=== PATIENT | female | born 1970 ===

== ENCOUNTER → 2021-01-05 | Outpatient (CLI) | payer OTHER ==
[2021-01-07 16:42] LABS: CORONAVIRUS (COVID19) CSH-NRL Negative (Negative)
== END | disposition home or self-care (01) ==
LOC: LAB SHORT 15:45 → LAB 15:45
PROVIDERS: Chiropractor
DX: Z20.822 Contact with and (suspected) exposure to COVID-19 (principal)
CPT/HCPCS: U0003

== ENCOUNTER → 2021-07-16 | Outpatient (CLI) | payer OTHER ==
[2021-07-18 02:11] LABS: CHLAMYDIA TRACHOMATIS, NAA Negative (Negative); HPV 16 Negative (Negative); HPV 18 Negative (Negative); HPV OTHER HR TYPES Positive (Negative)
== END | disposition home or self-care (01) ==
LOC: LAB SHORT 17:58
PROVIDERS: Family Medicine
DX: N95.1 Menopausal and female climacteric states (principal)
CPT/HCPCS: 87491; 87591; 87624; G0123

== ENCOUNTER → 2022-05-13 | Outpatient (CLI) | payer OTHER ==
[2022-05-19 15:11] LABS: HPV 16 Negative (Negative); HPV 18 Negative (Negative); HPV OTHER HR TYPES Positive (Negative)
== END ==
LOC: LAB SHORT 13:04 → LAB 13:04
PROVIDERS: Family Medicine
DX: N95.1 Menopausal and female climacteric states (principal)
CPT/HCPCS: 87624; G0123

== ENCOUNTER → 2022-12-24 | Outpatient (CLI) | payer OTHER ==
[2022-12-29 15:07] LABS: HPV 16 Negative (Negative); HPV 18 Negative (Negative); HPV OTHER HR TYPES Positive (Negative)
== END | disposition home or self-care (01) ==
LOC: LAB SHORT 15:20
PROVIDERS: Family Medicine
DX: R87.811 Vaginal high risk human papillomavirus (HPV) DNA test positive (principal)
CPT/HCPCS: 87624; G0145

== ENCOUNTER → 2023-03-03 | Outpatient (CLI) | payer OTHER | END | disposition home or self-care (01) | LOC: LAB 11:12 → LAB SHORT 11:12 → PLD 11:12 | DX: N87.0 Mild cervical dysplasia (principal) | CPT/HCPCS: 88305 ==

== ENCOUNTER 2023-06-14 08:05 | Day surgery (SDC) | payer OTHER ==
[~2023-06-14] VITALS: Ht 167.6 cm; Wt 65.1 kg
[2023-06-14] MEDS ORDERED: BUPR75 (08:47)
[2023-06-14 11:47] VITALS: BP 105/82
--- NOTE | 2023-06-14 11:50 | NUR ---
06/14/23 1150 Bob Jiménez PROVIDED SALINE FOR DRY EYES FOLLOWING PROCEDURE. SHE EXPRESSED RELIEF USING SALINE DROPS IN EYES.
== END 2023-06-14 11:40 | disposition home or self-care (01) ==
LOC: ORSCSDS 08:05
PROVIDERS: Surgery
PROC: 0DBH8ZX Excision of Cecum, Via Natural or Artificial Opening Endoscopic, Diagnostic (ICD-10-PCS; principal; 2023-06-14 09:45)
DX: Z12.11 Encounter for screening for malignant neoplasm of colon (principal); D12.0 Benign neoplasm of cecum; K60.3 Anal fistula; Z87.891 Personal history of nicotine dependence; Z79.899 Other long term (current) drug therapy
CPT/HCPCS: 88305; J2704; J7120

== ENCOUNTER → 2024-12-28 | Outpatient (CLI) | payer OTHER ==
[~2024-12-28] MED LIST: BUPR75
[2025-01-04 09:58] LABS: HPV HIGH RISK BY TMA Not Detected; HPV SOURCE Cervical
== END | disposition home or self-care (01) ==
LOC: LAB 19:31 → LAB SHORT 19:31
PROVIDERS: Family Medicine
DX: Z01.419 Encounter for gynecological examination (general) (routine) without abnormal findings (principal)
CPT/HCPCS: 87624; G0123

== ENCOUNTER → 2025-08-06 | Outpatient (CLI) | payer OTHER | END | disposition home or self-care (01) | LOC: LAB 08:01 → LAB SHORT 08:01 | DX: N85.8 Other specified noninflammatory disorders of uterus (principal) | CPT/HCPCS: 88305 ==